=== PATIENT | female | born 1995 | race African-American/Black ===

== ENCOUNTER → 2021-10-01 | Outpatient (CLI) | payer BC ==
--- NOTE | 2021-10-01 11:52 | KCIC ---
EXAM: Brain MRI without contrast. HISTORY: Numbness, weakness, migraine, dizziness and syncope. TECHNIQUE: Multiplanar, multisequence magnetic resonance imaging of the brain was performed without c ontrast. COMPARISON: None. FINDINGS: There is no acute or subacute infarction. There is no hemorrhage. There is no mass effect o r midline shift. There is no hydrocephalus. There is no suspicious white renal lesion. The orbits are unremarkable. There is small right and tiny left maxillary sinus mucous retention cysts. The mastoid air cells are clear. There are normal flow voids within the cerebral vessels. There is a small heman gioma within the right parietal bone. There is no suspicious calvarial lesion. IMPRESSION: No acute intracranial finding. Electronically signed by: Lisbet Lock MD (10/01/2021 11:49 AM) [facility]
== END ==
LOC: KCIC MRI 09:21
PROVIDERS: ATTEND Psychiatry & Neurology Neurology with Special Qualifications in Child Neurology
DX: D18.02 Hemangioma of intracranial structures (principal); J34.1 Cyst and mucocele of nose and nasal sinus; R20.0 Anesthesia of skin; R53.1 Weakness; G43.009 Migraine without aura, not intractable, without status migrainosus; R42 Dizziness and giddiness; R55 Syncope and collapse
CPT/HCPCS: 70551